=== PATIENT | female | born 1955 ===

== ENCOUNTER 2017-04-23 23:59 | Emergency (ER) | payer MEDICAID ==
[2017-04-24 00:01] VITALS: BMI 28.0
[2017-04-24 00:14] VITALS: RESP 20
[2017-04-24] MEDS ORDERED: Sodium Chloride 0.9% 1,000 ML IV ONE (00:21)
[2017-04-24] MEDS ORDERED: Sodium Chloride 0.9% 1,000 ML ONE (00:28)
[2017-04-24 00:49] LABS: BASO # 0.1 K/uL (0.0-0.2); BASO % 0.7 % (0.0-2.0); EOS # 0.2 K/uL (0.0-0.7); EOS % 1.7 % (0.0-4.0); HEMATOCRIT 42.3 % (34.0-47.0); LYMPH # 2.5 K/uL (1.0-4.3); LYMPH % 19.3 % (20.0-40.0); MEAN CELL VOLUME 90.7 fL (81.0-99.0); MEAN CORPUSCULAR HEMOGLOBIN 29.7 pg (27.0-31.0); MEAN CORPUSCULAR HGB CONC 32.8 g/dL (33.0-37.0); MEAN PLATELET VOLUME 8.1 fL (7.2-11.7); MONO # 1.1 K/uL (0.0-0.8); RED CELL DISTRIBUTION WIDTH 13.8 % (11.5-14.5); WHITE BLOOD COUNT 12.7 K/uL (4.8-10.8)
[2017-04-24] MEDS ORDERED: Iohexol 240 (50 ml) PO ONE (00:53)
[2017-04-24 00:54] LABS: RBC URINE < 1 /hpf (0-3); URINE BILIRUBIN NEGATIVE (NEGATIVE); URINE BLOOD NEGATIVE (NEGATIVE); URINE COLOR Colorless (YELLOW); URINE GLUCOSE (UA) NORMAL (Normal); URINE KETONE NEGATIVE (NEGATIVE); URINE LEUKOCYTE ESTERASE TRACE Leu/uL (Negative); URINE PROTEIN NEGATIVE (NEGATIVE); URINE UROBILINOGEN NORMAL mg/dL (0.2-1.0); WBC URINE 2 /hpf (0-5)
[2017-04-24] MEDS ORDERED: Iohexol 240 (50 ml) ONE (01:04)
[2017-04-24 01:09] LABS: ALB/GLOB RATIO 1.4 (1.0-2.1); ALKALINE PHOSPHATASE 108 U/L (38-126); ALT/SGPT 56 U/L (9-52); AST/SGOT 40 U/L (14-36); BILIRUBIN,TOTAL 0.5 mg/dL (0.2-1.3); BLOOD UREA NITROGEN 14 mg/dL (7-17); CALCIUM 8.7 mg/dl (8.6-10.4); CARBON DIOXIDE 25 mmol/L (22-30); CHLORIDE 103 mmol/L (98-107); GFR AFRICAN-AMERICAN > 60; GLUCOSE,RANDOM 110 mg/dL (65-105); POTASSIUM 3.5 mmol/L (3.6-5.2); SODIUM 141 mmol/L (132-148); TOTAL PROTEIN 7.6 g/dL (6.3-8.3)
[2017-04-24] MEDS ORDERED: Iohexol 350mg/ml 100 ML ONE (02:08)
--- NOTE | 2017-04-24 03:09 | CT ---
EXAM: CT Abdomen and Pelvis With Intravenous Contrast CLINICAL HISTORY: 62 years old, female; Pain; Abdominal pain; Additional info: Right-sided abdominal pain TECHNIQUE: Axial computed tomography images of the abdomen and pelvis with intravenous contrast. This CT exam was performed using one or more of the following dose reduction techniques: automated exposure control, adjustment of the mA and/or kV according to patient size, and/or use of iterative reconstruction technique. Coronal and sagittal reformatted images were created and reviewed. CONTRAST: 100 mL of [id number] administered intravenously. EXAM DATE/TIME: 04/24/2017 12:54 AM COMPARISON: CT - ABD PELVIS W/O PO OR 08/29/2014 3:50:58 PM no prior report. FINDINGS: The liver is decreased in attenuation consistent with fatty infiltration. The spleen is normal. The pancreas is normal. No gallstones. The right kidney is malrotated. There are subcentimeter lesions along the posterior lateral aspect of the right kidney similar to prior too small characterize. Followup is recommended to ensure stability. The urinary bladder is distended. Nonvisualization of the uterus and ovaries. The right colon is distended with stool consistent with constipation. The appendix is identified series 3 images 114- 133, coronal images 60 through 65. Proximal appendix contains air and is normal caliber measuring 5-6 mm. The distal appendix contains slightly hyperdense material and is dilated measuring 8 mm . The appearance is completely unchanged from prior. There is no wall thickening, wall hyperemia, or stranding in the surrounding fat to suggest appendicitis. IMPRESSION: Right-sided constipation.
[2017-04-24 03:38] VITALS: BP 127/86; PULSE 60; TEMP 97.6; O2SAT 100
--- NOTE | 2017-04-24 04:33 | C.PDOC ---
History Of Present Illness Patient is a 62 year old female who presents to the ER with a complaint of right sided abdominal pain for the past 2 days, associated with diarrhea. Denies nausea, vomiting, fever, dysuria, hematuria or recent travel. Time Seen by Provider: 04/24/17 00:22 Chief Complaint (Nursing): Abdominal Pain History Per: Patient History/Exam Limitations: no limitations Onset/Duration Of Symptoms: Days (2) Current Symptoms Are (Timing): Still Present Location Of Pain/Discomfort: Other (Right sided) Radiation Of Pain To:: None Associated Symptoms: Diarrhea. denies: Fever, Nausea, Vomiting, Urinary Symptoms Exacerbating Factors: None Alleviating Factors: None Recent travel outside of the [place]: No Abnormal Vaginal Bleeding: No Past Medical History Reviewed: Historical Data, Nursing Documentation, Vital Signs Vital Signs: Last Vital Signs Temp 97.6 F 04/24/17 03:36 Pulse 60 04/24/17 03:36 Resp 20 04/24/17 03:36 BP 127/86 04/24/17 03:36 Pulse Ox 100 04/24/17 04:38 - Medical History PMH: Anxiety, Arthritis, Bronchitis, Depression, Fractures (right foot), Gastritis, Gastrointestinal Ulcer, HTN, Hypothyroidism, Osteoporosis Surgical History: Endoscopy - [facility] Procedures ASSIST VAG HYSTER(LAVH) (08/23/14) COLONOSCOPY (05/01/15) ESOPHAGOGASTRODUODENOSCOPY [EGD] W/CLOSED BIOPSY (03/27/15) LAPAROSCOP REMOVE OVARIES/TUBES (08/23/14) LAPAROSCOPIC ROBOTIC ASSISTED PROCEDURE (08/23/14) Family History: States: Unknown Family Hx - Social History Hx Tobacco Use: No Hx Alcohol Use: No Hx Substance Use: No - Immunization History Hx Tetanus Toxoid Vaccination: No Hx Influenza Vaccination: No Hx Pneumococcal Vaccination: No Review Of Systems Constitutional: Negative for: Fever Gastrointestinal: Positive for: Abdominal Pain (Right sided), Diarrhea. Negative for: Nausea, Vomiting Genitourinary: Negative for: Dysuria, Hematuria Physical Exam - Physical Exam Appears: Non-toxic, No Acute Distress Skin: Normal Color, Warm, Dry Head: Atraumatic, Normacephalic Oral Mucosa: Moist Chest: Symmetrical, No Tenderness Cardiovascular: Rhythm Regular, No Murmur Respiratory: Normal Breath Sounds, No Rales, No Rhonchi, No Wheezing Gastrointestinal/Abdominal: Bowel Sounds (Good), Soft, Tenderness (Right sided) , No Guarding, No Rebound Neurological/Psych: Oriented x3, Normal Speech, Normal Cognition ED Course And Treatment - Laboratory Results Result Diagrams: 04/24/17 00:44 04/24/17 00:44 O2 Sat by Pulse Oximetry: 100 (Room air) Pulse Ox Interpretation: Normal Progress Note: Pepcid, zofran and IV fluids administered. Urine culture ordered. Disposition - Disposition Referrals: [facility] Stephani Garcia, [Non-Staff] - Disposition: HOME/ ROUTINE Disposition Time: 06:11 Condition: GOOD Additional Instructions: Thank you for letting us take care of you today. Your provider was Dr. Squires. You were treated for constipation. The emergency medical care you received today was directed at your acute symptoms. If you were prescribed any medication, please fill it and take as directed. It may take several days for your symptoms to resolve. Return to the Emergency Department if your symptoms worsen, do not improve, or if you have any other problems. Please contact your doctor or call one of the physicians/clinics you have been referred to that are listed on the Patient Visit Information form that is included in your discharge packet. Bring any paperwork you were given at discharge with you along with any medications you are taking to your follow up visit. Our treatment cannot replace ongoing medical care by a primary care provider (PCP) outside of the emergency department. Thank you for allowing the [facility] team to be part of your care today. Follow up with your doctor in 3-4 days for re-evaluation. Prescriptions: Docusate [Colace] 100 mg PO Q8 PRN #20 cap PRN Reason: Constipation Instructions: Constipation (ED) Forms: Gen Discharge Inst Tanzanian Print Language: MARSHALLESE - Clinical Impression Clinical Impression: Constipation, Abdominal pain - Scribe Statement The provider has reviewed the documentation as recorded by the Scribe Alvaro Xie All medical record entries made by the Scribe were at my direction and personally dictated by me. I have reviewed the chart and agree that the record accurately reflects my personal performance of the history, physical exam, medical decision making, and the department course for this patient. I have also personally directed, reviewed, and agree with the discharge instructions and disposition.
== END 2017-04-24 03:38 | disposition home or self-care (01) ==
LOC: C.ER 23:59
DX: K59.00 Constipation, unspecified (principal); R10.9 Unspecified abdominal pain
CPT/HCPCS: 74177; 80053; 81001; 83690; 85025; 87086; 96374; 96375; 99284; J2405; J7040; Q9966; Q9967

== ENCOUNTER 2018-01-05 08:22 | Day surgery (SDC) | payer MEDICAID ==
[2018-01-05 08:55] VITALS: BMI 27.4
[2018-01-05] MEDS ORDERED: Propofol 10 mg/ml Inj (20 ML) ONE (13:35)
--- NOTE | 2018-01-05 13:51 | CP.SDSHP ---
Same Day Surgery H & P - History Proposed Procedure: Colonoscopy Pre-Op Diagnosis: Change in bowel habits - Previous Medical/Surgical History Cardiac: Hypertension Endocrine/Metabolic: Thyroid Disease Previous Surgical History: ovarian surgery - Allergies Allergies: Allergies No Known Allergies Allergy (Verified 02/22/16 22:49) - Current Medications Current Medications: reviwed, per reconciliation - Physical Exam General Appearance: wdwn nad Vital Signs: Vital Signs 01/05/18 09:06 Temperature 98.4 F Pulse Rate 71 Respiratory 20 Rate Blood Pressure 125/82 O2 Sat by Pulse 98 Oximetry Mental Status: Alert & Oriented x3 Heart: WNL Lungs: WNL GI: WNL - {Optional Preform as Required} Abdomen: WNL - Impression Impression: change in bowel habits Pt. Evaluated Today:Candidate for Anesthesia & Procedure: Yes - Date & Time Date: 01/05/18 Time: 13:50 Short Stay Discharge - Short Stay Discharge Admitting Diagnosis/Reason for Visit: CHANGE IN BOWEL HABITS Disposition: HOME/ ROUTINE
[2018-01-05 14:25] VITALS: TEMP 98
[2018-01-05 15:10] VITALS: BP 143/85; PULSE 60; RESP 18; O2SAT 99
== END 2018-01-05 15:07 | disposition home or self-care (01) ==
LOC: C.ENDO 08:22
PROVIDERS: ATTEND Internal Medicine Gastroenterology
DX: R19.4 Change in bowel habit (principal); K62.1 Rectal polyp; K64.8 Other hemorrhoids; K58.9 Irritable bowel syndrome, unspecified
CPT/HCPCS: 45385; 88305; J2704